=== PATIENT | female | born 1970 | race Caucasian/White ===

== ENCOUNTER 2016-12-21 11:38 | Inpatient (IN) | payer OTHER ==
[2016-12-21 11:52] VITALS: BMI 25.8
--- NOTE | 2016-12-21 15:02 | HP ---
CIWA Score - CIWA Score Nausea/Vomitin-Int. Nausea w/Dry Heave Muscle Tremors: 3 Anxiety: 3 Agitation: 1-Slight > Activity Paroxysmal Sweats: 2 Orientation: 0-Oriented Tacttile Disturbances: 0-None Auditory Disturbances: 3-Moderate Harsh/Frighten Visual Disturbances: 2-Mild Sensitivity Headache: 0-None Present CIWA-Ar Total Score: 18 Admission ROS BHS - HPI Chief Complaint: "I need to stop drinking." Pt. is here to Detox from Alcohol. Allergies/Adverse Reactions: Allergies Allergy/AdvReac Type Severity Reaction Status Date / Time No Known Allergies Allergy Verified 12/21/16 12:32 History of Present Illness: Py. is a 46 YO female here to Detox from Alcohol. This is pt.'s second Detox admission at [facility] (first was many years ago). Pt. has had previous Rehab admissions ( [facility], [facility]). Longest Period of sobriety: approx. 4 years (2009 -2013). Exam Limitations: No Limitations - Ebola screening Have you traveled outside of the country in the last 21 days: No Have you had contact with anyone from an Ebola affected area: No Have you been sick,other than usual withdrawal symptoms: No - Review of Systems Constitutional: Chills, Diaphoresis, Fever, Loss of Appetite, Malaise, Night Sweats, Changes in sleep, Unintentional Wgt. Loss (Lost approx. 10-15 lbs. over the last 1 year.) EENT: reports: Tearing, Nose Congestion, Sinus Pressure, Dental Problems ( Missing Top Teeth, needs to get fitted for Denture. Patient reports that she is able to chew solid food adequately.) Respiratory: reports: SOB with Exertion, Productive cough (Occasional.) Cardiac: reports: No Symptoms Reported GI: reports: Constipated, Nausea, Poor Appetite : reports: No Symptoms Reported Musculoskeletal: reports: Back Pain, Joint Pain, Muscle Pain, Joint Stiffness Integumentary: reports: No Symptoms Reported Neuro: reports: Numbness (Bilateral Hands (History of Carpal Tunnel Syndrome - Bilateral).), Tingling (Bilateral Hands (History of Carpal Tunnel Syndrome - Bilateral).), Tremors Endocrine: reports: No Symptoms Reported Hematology: reports: No Symptoms Reported Psychiatric: reports: Judgement Intact, Mood/Affect Appropiate, Orientated x3, Anxious, Depressed (On meds.) Other Systems: Reviewed and Negative Patient History - Patient Medical History Hx Anemia: No Hx Asthma: Yes (On Meds.) Hx Chronic Obstructive Pulmonary Disease (COPD): Yes (On Meds.) Hx Cancer: No Hx Cardiac Disorders: Yes (IA: approx 3 months ago; Cardiac cath x2: 3 years ago , then 3 months ago.) Hx Congestive Heart Failure: No Hx Hypertension: No Hx Hypercholesterolemia: Yes (On med.; has not taken for a while.) Hx Pacemaker: No HX Cerebrovascular Accident: No Hx Seizures: No Hx Dementia: No Hx Diabetes: No Hx Gastrointestinal Disorders: No Hx Liver Disease: No Hx Genitourinary Disorders: No Hx Sexually Transmitted Disorders: No Hx Renal Disease (ESRD): No Hx Thyroid Disease: No Hx Human Immunodeficiency Virus (HIV): No (Last tested: approx. 1 year ago: NEGATIVE.) Hx Hepatitis C: Yes (Diagnosed; 01/2016.) Hx Depression: Yes (On meds.) Hx Suicide Attempt: Yes (Tried to cut wrist 23 yrs ago. PATIENT DENEIS CURRENT SI / HI.) Hx Bipolar Disorder: No Hx Schizophrenia: No Other Medical History: Arhtritis: L. Back, Hands, Knees; Bulging discs in Back; Carpal Tunnel Syn. - Patient Surgical History Past Surgical History: Yes Hx Neurologic Surgery: Yes (R hand carpal tunnel sx) Hx Cataract Extraction: No Hx Cardiac Surgery: Yes (cardiac cath x2) Hx Lung Surgery: No Hx Breast Surgery: No Hx Breast Biopsy: No Hx Abdominal Surgery: No Hx Appendectomy: No Hx Cholecystectomy: No Hx Genitourinary Surgery: No Hx Section: No Hx Orthopedic Surgery: Yes (R knee arthroscopic sx for Torn Meniscus.) Hx Hysterectomy: No Other Surgical History: bunionectomy, tonsillectomy, tubal ligation Anesthesia Reaction: No - PPD History Previous Implant?: Yes Documented Results: Negative w/o proof Implanted On Prior [facility] Admission?: No PPD to be Administered?: Yes - Reproductive History Patient is a Female of Child Bearing Age (11 -55 yrs old): Yes LMP comment: APPROX. 2 YEARS AGO. Patient : No - Smoking Cessation Smoking history: Current every day smoker Have you smoked in the past 12 months: Yes Aproximately how many cigarettes per day: 20 Cigars Per Day: 0 Hx Chewing Tobacco Use: No Initiated information on smoking cessation: Yes 'Breaking Loose' booklet given: 12/21/16 (GIVEN ON UNIT.) - Substance & Tx. History Hx Alcohol Use: Yes Hx Substance Use: Yes Substance Use Type: Alcohol, Heroin Hx Substance Use Treatment: Yes (Previous Detox and Rehab admissions.) - Substances Abused Alcohol Route: Oral Frequency: Daily Amount used: 2-4 pints vodka Age of first use: 11 Date of Last Use: 12/21/16 Heroin Route: Injection Frequency: 1-3 times last 30 days Amount used: 1 bag Age of first use: 31 Date of Last Use: 12/19/16 Family Disease History - Family Disease History Family History: Denies (Patient is Adopted.) Admission Physical Exam S - Vital Signs Vital Signs: Vital Signs - 24 hr 12/21/16 11:49 Temperature 97.1 F L Pulse Rate 90 Respiratory 20 Rate Blood Pressure 134/76 - Physical General Appearance: Yes: No Apparent Distress, Nourished, Appropriately Dressed , Tremorous, Anxious HEENTM: Yes: Hearing grossly Normal, Normocephalic, Normal Voice, GEMMA, Pharynx Normal Respiratory: Yes: Chest Non-Tender, Lungs Clear, No Respiratory Distress Neck: Yes: No masses,lesions,Nodules, Supple, Trachea in good position Breast: Yes: Breast Exam Deferred Cardiology: Yes: Regular Rhythm, Regular Rate, S1, S2 Abdominal: Yes: Normal Bowel Sounds, Non Tender, Flat, Soft Genitourinary: Yes: Within Normal Limits Back: Yes: Decreased Range of Motion Musculoskeletal: Yes: Gait Steady, Back pain, Joint Stiffness, Muscle Pain Extremities: Yes: Tremors Neurological: Yes: Fully Oriented, Alert, Normal Mood/Affect, Normal Response Integumentary: Yes: Normal Color, Dry, Warm, Track Ross (Noted on bilateral forearms. No signs of infection noted at any of the affected sites.) Lymphatic: Yes: Within Normal Limits - Diagnostic (1) Alcohol dependence with uncomplicated withdrawal Current Visit: Yes Status: Acute (2) Opioid dependence, uncomplicated Current Visit: Yes Status: Chronic (3) Methadone maintenance therapy patient Current Visit: Yes Status: Chronic (4) Opioid dependence on agonist therapy Current Visit: Yes Status: Chronic (5) Asthma Current Visit: Yes Status: Chronic Qualifiers: Asthma severity: mild persistent Asthma complication type: uncomplicated Qualified Code(s): J45.30 - Mild persistent asthma, uncomplicated (6) COPD (chronic obstructive pulmonary disease) Current Visit: Yes Status: Chronic Qualifiers: COPD type: unspecified COPD Qualified Code(s): J44.9 - Chronic obstructive pulmonary disease, unspecified (7) Arthritis involving multiple sites Current Visit: Yes Status: Chronic (8) Carpal tunnel syndrome Current Visit: Yes Status: Chronic Qualifiers: Laterality: bilateral Qualified Code(s): G56.03 - Carpal tunnel syndrome, bilateral upper limbs (9) History of myocardial infarction Current Visit: Yes Status: Chronic (10) History of carpal tunnel surgery Current Visit: Yes Status: Chronic (11) History of depression Current Visit: Yes Status: Chronic (12) Hepatitis C Current Visit: Yes Status: Chronic Qualifiers: Viral hepatitis chronicity: chronic Hepatic coma status: without hepatic coma Qualified Code(s): B18.2 - Chronic viral hepatitis C (13) Bulging of lumbar intervertebral disc Current Visit: Yes Status: Chronic (14) Hypercholesterolemia Current Visit: Yes Status: Chronic (15) Low back pain Current Visit: Yes Status: Active (16) Nicotine dependence Current Visit: Yes Status: Chronic Cleared for Admission [facility] - Detox or Rehab [facility] Level of Care: Medically Managed Detox Regimen/Protocol: Librium [facility] Breath Alcohol Content Breath Alcohol Content: 0.337 Urine Pregancy Test - Result Urine Test Results: Negative- NO Line Present Urine Drug Screen - Results Drug Screen Negative: No Urine Drug Screen Results: OPI-Opiates, BZO-Benzodiazepines, MTD-Methadone
[2016-12-21 15:32] LABS: HIV 1 & 2 AB NEGATIVE; HIV 1 AGp24 NEGATIVE
[2016-12-21] MEDS ORDERED: ACETAMINOPHEN 325 MG TABLET (FP) PO PRN (15:57)
[2016-12-21] MEDS ORDERED: P-EPHED 60MG/TRIPROLIDI 2.5MG TABLET PO PRN (15:57)
[2016-12-21] MEDS ORDERED: MAGNESIUM HYDROX 2400MG/30ML ORAL SUSPENSION 30 ML CUP PO PRN (15:57)
[2016-12-21] MEDS ORDERED: guaiFENesin/D-METHORPHAN HB 10 ML UNIT-DOSE CUPS PO PRN (15:57)
[2016-12-21] MEDS ORDERED: LOPERAMIDE HCL 2 MG CAPSULE PO PRN (15:57)
[2016-12-21] MEDS ORDERED: MENTHOL/PHENOL 1 EACH UD MM PRN (15:57)
[2016-12-21] MEDS ORDERED: MAG HYDROX/AL HYDROX/SIMETH 30 ML UNIT-DOSE CUP PO PRN (15:57)
[2016-12-21] MEDS ORDERED: MAGNESIUM CITRATE 300 ML BOTTLE PO PRN (15:57)
[2016-12-21] MEDS ORDERED: IBUPROFEN 400 MG TABLET (FP) PO PRN (15:57)
[2016-12-21] MEDS ORDERED: NICOTINE POLACRILEX 2 MG GUM BC PRN (15:57)
[2016-12-21] MEDS ORDERED: ALBUTEROL SO4 6.7 GM HFA INHALER IH PRN (16:09)
[2016-12-21] MEDS ORDERED: ALBUTEROL SO4 2.5/IPRATROPIUM 0.5 INH SOL 3 ML VIAL.NEB. NEB PRN (16:10)
[2016-12-21] MEDS: ASPIRIN 81 MG CHEWABLE TABLETS PO SCH (17:14)
[2016-12-21] MEDS ORDERED: chlordiazePOXIDE HCL 25 MG CAPSULE PO ONE (17:15)
[2016-12-21] MEDS: chlordiazePOXIDE HCL 25 MG CAPSULE PO SCH ×2 (17:19→22:14)
[2016-12-21] MEDS: NICOTINE 21 MG/24 HOURS TOPICAL PATCH TD SCH (19:00)
[2016-12-21] MEDS: GABAPENTIN 300 MG CAPSULE (FP) PO SCH (22:15)
[2016-12-21] MEDS: THIAMINE HCL 100 MG TABLET (FP) PO SCH (22:15)
[2016-12-21] MEDS: ATORVASTATIN CA 40 MG TABLET (FP) PO SCH (22:15)
[2016-12-21] MEDS: BUDESONIDE/FORMETEROL FUMARATE 80/4.5 mcg INHALER IH SCH (22:50)
[2016-12-21 23:23] LABS: URINE APPEARANCE SLCLOUDY; URINE BILIRUBIN NEGATIVE (NEGATIVE); URINE BLOOD NEGATIVE (NEGATIVE); URINE COLOR YELLOW; URINE GLUCOSE (UA) NEGATIVE (NEGATIVE); URINE KETONE NEGATIVE (NEGATIVE); URINE LEUK ESTERASE TRACE (NEGATIVE); URINE NITRITE NEGATIVE (NEGATIVE); URINE PROTEIN 1+ (NEGATIVE); URINE UROBILINOGEN 2.0 E.U/dl E.U./dl (0.2-1.0)
[2016-12-21 23:28] LABS: URINE HYALINE CAST 1 /lpf; URINE MUCUS RARE; URINE RBC 4 /hpf (0-3); URINE WBC 4 /hpf (3-5)
[2016-12-22] MEDS: chlordiazePOXIDE HCL 25 MG CAPSULE PO SCH ×4 (05:57→22:11)
[2016-12-22] MEDS: GABAPENTIN 300 MG CAPSULE (FP) PO SCH ×3 (06:37→22:11)
[2016-12-22] MEDS ORDERED: METHADONE HCL 10 MG TABLET PO ONE (08:48)
[2016-12-22] MEDS ORDERED: METHADONE 40 MG, METHADONE 30 MG PO ONE (08:55)
[2016-12-22] MEDS ORDERED: METHADONE HCL 10 MG TABLET ONE (09:09)
[2016-12-22] MEDS ORDERED: METHADONE HCL 40 MG DISPERSABLE TABLET ONE (09:09)
[2016-12-22 10:01] LABS: ALBUMIN 3.9 g/dl (3.4-5.0); ALK PHOS 114 U/L (45-117); ANION GAP 7 (8-16); BILIRUBIN,TOTAL 0.9 mg/dL (0.2-1.0); CO2 31 mmol/L (21-32); CREATININE 0.5 mg/dL (0.55-1.02); GLUCOSE,RANDOM 78 mg/dL (74-106); SGOT/AST 175 U/L (15-37); SGPT/ALT 58 U/L (12-78); TOT PROT 7.8 g/dl (6.4-8.2)
[2016-12-22 10:02] LABS: MCH 35.3 pg (25.7-33.7); MCHC 32.9 g/dl (32.0-36.0); MEAN CELL VOLUME 107.3 fl (80-96); MEAN PLT VOLUME 10.6 fl (7.5-11.1); PLATELET COUNT 96 K/MM3 (134-434); RDW 14.8 % (11.6-15.6); WHITE BLOOD COUNT 5.2 K/mm3 (4.0-10.0)
[2016-12-22] MEDS: ASPIRIN 81 MG CHEWABLE TABLETS PO SCH (10:29)
[2016-12-22] MEDS: CYCLOBENZAPRINE HCL 10 MG TABLET (FP) PO PRN (10:29)
[2016-12-22] MEDS: PRENATAL VITAMINS W/ FOLIC ACID TABLET (FP) PO SCH (10:29)
[2016-12-22] MEDS: BUDESONIDE/FORMETEROL FUMARATE 80/4.5 mcg INHALER IH SCH ×2 (10:30→22:11)
[2016-12-22] MEDS: NICOTINE 21 MG/24 HOURS TOPICAL PATCH TD SCH (10:30)
--- NOTE | 2016-12-22 10:34 | PN ---
S CIWA - CIWA Score Nausea/Vomitin Muscle Tremors: 3 Anxiety: 3 Agitation: 3 Paroxysmal Sweats: 1-Minimal Palms Moist Orientation: 0-Oriented Tacttile Disturbances: 1-Very Mild Itch/Numbness Auditory Disturbances: 1-Very Mild Visual Disturbances: 1-Very Mild Sensitivity Headache: 2-Mild CIWA-Ar Total Score: 18 S Progress Note (SOAP) Subjective: ALERT,IRRITABLE,ANXIOUS,INTERRUPTED SLEEP,TREMOR,PAIN IN THE BODY AND BACK Objective: 12/22/16 10:29 Vital Signs Temperature 98.6 F 12/22/16 06:00 Pulse Rate 71 12/22/16 07:30 Respiratory Rate 18 12/22/16 07:30 Blood Pressure 148/89 12/22/16 07:30 O2 Sat by Pulse Oximetry (%) EKG NSR,INVERTED T IN 3,V4 TO V6 NO CHEST PAIN,NO SOB,NO DIZZINESS Laboratory Last Values WBC 5.2 K/mm3 (4.0-10.0) 12/22/16 06:00 RBC 3.89 M/mm3 (3.60-5.2) 12/22/16 06:00 Hgb 13.7 GM/dL (10.7-15.3) 12/22/16 06:00 Hct 41.8 % (32.4-45.2) 12/22/16 06:00 MCV 107.3 fl (80-96) H 12/22/16 06:00 MCHC 32.9 g/dl (32.0-36.0) 12/22/16 06:00 RDW 14.8 % (11.6-15.6) 12/22/16 06:00 Plt Count 96 K/MM3 (134-434) L 12/22/16 06:00 MPV 10.6 fl (7.5-11.1) 12/22/16 06:00 Sodium 141 mmol/L (136-145) 12/22/16 06:00 Potassium 4.0 mmol/L (3.5-5.1) 12/22/16 06:00 Chloride 103 mmol/L (98-107) 12/22/16 06:00 Carbon Dioxide 31 mmol/L (21-32) 12/22/16 06:00 Anion Gap 7 (8-16) L 12/22/16 06:00 BUN 4 mg/dL (7-18) L D 12/22/16 06:00 Creatinine 0.5 mg/dL (0.55-1.02) L 12/22/16 06:00 Creat Clearance w eGFR > 60 (>60) 12/22/16 06:00 Random Glucose 78 mg/dL (74-106) 12/22/16 06:00 Calcium 9.0 mg/dL (8.5-10.1) 12/22/16 06:00 Total Bilirubin 0.9 mg/dL (0.2-1.0) D 12/22/16 06:00 AST 175 U/L (15-37) H D 12/22/16 06:00 ALT 58 U/L (12-78) D 12/22/16 06:00 Alkaline Phosphatase 114 U/L (45-117) D 12/22/16 06:00 Total Protein 7.8 g/dl (6.4-8.2) 12/22/16 06:00 Albumin 3.9 g/dl (3.4-5.0) 12/22/16 06:00 Urine Color Yellow 12/21/16 21:53 Urine Appearance Slcloudy 12/21/16 21:53 Urine pH 6.0 (5.0-8.0) 12/21/16 21:53 Urine Protein 1+ (NEGATIVE) H 12/21/16 21:53 Urine Glucose (UA) Negative (NEGATIVE) 12/21/16 21:53 Urine Ketones Negative (NEGATIVE) 12/21/16 21:53 Urine Blood Negative (NEGATIVE) 12/21/16 21:53 Urine Nitrite Negative (NEGATIVE) 12/21/16 21:53 Urine Bilirubin Negative (NEGATIVE) 12/21/16 21:53 Urine Urobilinogen 2.0 e.u/dl E.U./dl (0.2-1.0) H 12/21/16 21:53 Ur Leukocyte Esterase Trace (NEGATIVE) H 12/21/16 21:53 Urine RBC 4 /hpf (0-3) 12/21/16 21:53 Urine WBC 4 /hpf (3-5) 12/21/16 21:53 Ur Epithelial Cells Many /hpf (FEW) 12/21/16 21:53 Amorphous Urates Moderate /hpf (NONE SEEN) 12/21/16 21:53 Hyaline Casts 1 /lpf 12/21/16 21:53 Urine Mucus Rare 12/21/16 21:53 HIV 1&2 Antibody Screen Negative 12/21/16 12:00 HIV P24 Antigen Negative 12/21/16 12:00 Assessment: 12/22/16 10:34 WITHDRAWAL SYMPTOM Plan: CONTINUE DETOX,AST 175,ALT 58,D/C TYLENOL
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
[2016-12-22] MEDS: chlordiazePOXIDE HCL 25 MG CAPSULE PO PRN (13:56)
[2016-12-22 14:22] LABS: HYPOCHROMIA 2+; TARGET CELLS 1+
[2016-12-22] MEDS: ATORVASTATIN CA 40 MG TABLET (FP) PO SCH (22:11)
[2016-12-22] MEDS: diphenhydrAMINE HCL 50 MG CAPSULE PO PRN (22:11)
[2016-12-22] MEDS: THIAMINE HCL 100 MG TABLET (FP) PO SCH (22:11)
[2016-12-23] MEDS ORDERED: METHADONE HCL 10 MG TABLET ONE (05:11)
[2016-12-23] MEDS ORDERED: METHADONE HCL 40 MG DISPERSABLE TABLET ONE (05:11)
[2016-12-23] MEDS: METHADONE 40 MG, METHADONE 30 MG PO SCH (05:32)
[2016-12-23] MEDS: chlordiazePOXIDE HCL 25 MG CAPSULE PO SCH ×2 (05:32→10:08)
[2016-12-23] MEDS: GABAPENTIN 300 MG CAPSULE (FP) PO SCH ×3 (05:32→22:10)
[2016-12-23] MEDS ORDERED: METHADONE HCL 40 MG DISPERSABLE TABLET PO SCH (06:00)
[2016-12-23] MEDS: BUDESONIDE/FORMETEROL FUMARATE 80/4.5 mcg INHALER IH SCH ×2 (10:08→22:10)
[2016-12-23] MEDS: PRENATAL VITAMINS W/ FOLIC ACID TABLET (FP) PO SCH (10:08)
[2016-12-23] MEDS: SERTRALINE HCL 50 MG TABLET (FP) PO SCH (10:08)
[2016-12-23] MEDS: ASPIRIN 81 MG CHEWABLE TABLETS PO SCH (10:08)
[2016-12-23] MEDS: NICOTINE 21 MG/24 HOURS TOPICAL PATCH TD SCH (10:09)
--- NOTE | 2016-12-23 10:24 | PN ---
S CIWA - CIWA Score Nausea/Vomitin Muscle Tremors: 3 Anxiety: 3 Agitation: 2 Paroxysmal Sweats: 1-Minimal Palms Moist Orientation: 0-Oriented Tacttile Disturbances: 1-Very Mild Itch/Numbness Auditory Disturbances: 1-Very Mild Visual Disturbances: 1-Very Mild Sensitivity Headache: 2-Mild CIWA-Ar Total Score: 17 BHS Progress Note (SOAP) Subjective: ALERT,IRRITABLE,ANXIOUS,INTERRUPTED SLEEP,TREMOR Objective: 12/23/16 10:23 Vital Signs Temperature 98.2 F 12/23/16 10:11 Pulse Rate 124 H 12/23/16 10:11 Respiratory Rate 18 12/23/16 10:11 Blood Pressure 118/81 12/23/16 10:11 O2 Sat by Pulse Oximetry (%) Assessment: 12/23/16 10:23 WITHDRAWAL SYMPTOM Plan: CONTINUE DETOX
[2016-12-23] MEDS: chlordiazePOXIDE HCL 25 MG CAPSULE PO PRN (14:56)
[2016-12-23] MEDS: chlordiazePOXIDE 5 MG CAPSULE PO SCH ×2 (17:27→22:10)
[2016-12-23] MEDS: ATORVASTATIN CA 40 MG TABLET (FP) PO SCH (22:10)
[2016-12-23] MEDS: CYCLOBENZAPRINE HCL 10 MG TABLET (FP) PO PRN (22:10)
[2016-12-23] MEDS: THIAMINE HCL 100 MG TABLET (FP) PO SCH (22:10)
[2016-12-23] MEDS: diphenhydrAMINE HCL 50 MG CAPSULE PO PRN (22:10)
[2016-12-24] MEDS: chlordiazePOXIDE HCL 25 MG CAPSULE PO PRN (01:21)
[2016-12-24] MEDS: diphenhydrAMINE HCL 50 MG CAPSULE PO PRN (01:21)
[2016-12-24] MEDS ORDERED: METHADONE HCL 40 MG DISPERSABLE TABLET ONE (04:43)
[2016-12-24] MEDS ORDERED: METHADONE HCL 10 MG TABLET ONE (04:44)
[2016-12-24] MEDS: chlordiazePOXIDE 5 MG CAPSULE PO SCH ×2 (05:26→10:15)
[2016-12-24] MEDS: METHADONE 40 MG, METHADONE 30 MG PO SCH (05:27)
[2016-12-24] MEDS: GABAPENTIN 300 MG CAPSULE (FP) PO SCH ×3 (05:32→22:41)
--- NOTE | 2016-12-24 09:19 | PN ---
S Progress Note (SOAP) Subjective: ALERT,INTERRUPTED SLEEP Objective: 12/24/16 09:16 Vital Signs Temperature 98.2 F 12/24/16 05:54 Pulse Rate 132 H 12/24/16 05:54 Respiratory Rate 18 12/24/16 05:54 Blood Pressure 117/80 12/24/16 05:54 O2 Sat by Pulse Oximetry (%) Assessment: 12/24/16 09:16 WITHDRAWAL SYMPTOM Plan: CONTINUE DETOX,DISCHARGE IN AM AT 07.00AM
[2016-12-24] MEDS: PRENATAL VITAMINS W/ FOLIC ACID TABLET (FP) PO SCH (10:15)
[2016-12-24] MEDS: CYCLOBENZAPRINE HCL 10 MG TABLET (FP) PO PRN (10:15)
[2016-12-24] MEDS: SERTRALINE HCL 50 MG TABLET (FP) PO SCH (10:15)
[2016-12-24] MEDS: NICOTINE 21 MG/24 HOURS TOPICAL PATCH TD SCH (10:16)
[2016-12-24] MEDS: BUDESONIDE/FORMETEROL FUMARATE 80/4.5 mcg INHALER IH SCH ×2 (10:17→22:35)
[2016-12-24] MEDS: ASPIRIN 81 MG CHEWABLE TABLETS PO SCH (10:58)
--- NOTE | 2016-12-24 13:30 | PN ---
BHS Progress Note Note: CONFUSED AT TIME ,BLOOD FOR AMMONIA LEVEL ORDERED,CLOSE MONITORINGR
[2016-12-24] MEDS: hydrOXYzine PAMOATE 50 MG CAPSULE (FP) PO PRN (13:50)
[2016-12-24] MEDS: chlordiazePOXIDE HCL 10 MG CAPSULE PO SCH ×2 (17:17→22:41)
[2016-12-24] MEDS: LACTULOSE 20 GM/30 ML UDC (FOR ORAL USE ONLY) PO SCH ×2 (20:20→22:40)
--- NOTE | 2016-12-24 21:02 | PN ---
BHS Progress Note Note: Ammonium levels elevated; Lactulose 20mg PO BID ordered. Will continue to monitor.
--- NOTE | 2016-12-24 22:21 | EKG ---
Test Reason : Blood Pressure : / mmHG Vent. Rate : 069 BPM Atrial Rate : 069 BPM P-R Int : 158 ms QRS Dur : 098 ms QT Int : 468 ms P-R-T Axes : 049 024 242 degrees QTc Int : 501 ms NORMAL SINUS RHYTHM T WAVE T WAVE ABNORMALITY, CONSIDER ANTEROLATERAL ISCHEMIA PROLONGED QT ABNORMAL ECG NO PREVIOUS ECGS AVAILABLE Confirmed by JIMMY CHAMPION MD ([id number]) on 12/24/2016 10:21:17 PM Referred By: Confirmed By:JIMMY CHAMPION MD
[2016-12-24] MEDS: THIAMINE HCL 100 MG TABLET (FP) PO SCH (22:34)
[2016-12-24] MEDS: ATORVASTATIN CA 40 MG TABLET (FP) PO SCH (22:34)
--- NOTE | 2016-12-24 23:35 | PN ---
[facility] Progress Note Note: Per RN Nette Herndon, pt. has periods of confusion. Earlier, she is looking for her dog and friend under the bed. When CAMBERING MACHINE OPERATOR came to the floor, pt. found sleeping in bed. 1:1 supervision ordered until further notice. Ammonia levels to be rechecked in the morning.
[2016-12-25 06:33] VITALS: BP 111/74; PULSE 112; TEMP 98.2
[2016-12-25] MEDS: GABAPENTIN 300 MG CAPSULE (FP) PO SCH (07:37)
--- NOTE | 2016-12-25 07:53 | PN ---
[facility] Progress Note (SOAP) Subjective: ALERT,ORIENTED X3,NO COMPLAINT,HAS APPOINTMENT TO SEE HER PSYCHIATRIST AT 9.30 AM TODAY Objective: 12/25/16 07:52 Vital Signs Temperature 98.2 F 12/25/16 05:00 Pulse Rate 112 H 12/25/16 05:00 Respiratory Rate 18 12/25/16 05:00 Blood Pressure 111/74 12/25/16 05:00 O2 Sat by Pulse Oximetry (%) 12/25/16 07:54 Abnormal Lab Results 12/24/16 18:36 Ammonia 88.36 H Assessment: 12/25/16 07:54 DETOX COMPLETED,NO WITHDRAWAL SYMPTOM Plan: STABLE FOR DISCHARGE TODAY,D/D ONE ON ONE,ON LACTULOSE 20 GRAMS PO BID, ADVISE TO SEE HER PSYCHIATRIST TODAY APPOINTMENT,FOLLOW UP WITH HER METHADONE PROGRAM TOMORROW ON 12/26/16 AND HER PMD FOR FOLLOW UP PATENT UNDER STAND ALL RECOMMENDATIONS
[2016-12-25] MEDS ORDERED: METHADONE HCL 40 MG DISPERSABLE TABLET ONE (07:54)
[2016-12-25] MEDS ORDERED: METHADONE HCL 10 MG TABLET ONE (07:55)
[2016-12-25] MEDS: METHADONE 40 MG, METHADONE 30 MG PO SCH (07:57)
[2016-12-25] MEDS: chlordiazePOXIDE HCL 10 MG CAPSULE PO SCH (07:57)
--- NOTE | 2016-12-25 08:26 | DS ---
[facility] Detox Discharge Summary Admission Date: 12/21/16 Discharge Date: 12/25/16 - History Present History: Alcohol Dependence, Opioid Dependence, MMTP Additional Comments: follow up with psychiatrist today at 9.30 am,follow up with methadone clinic on 12/26/16,to see pmd for follow up on elevation of ammonia level and medical problem,explain to patient for the need of taking lactulose 20 grams 30 mls po bid for 10 days Pertinent Past History: asthma copd arthritis hepatitis c history of mi low back pain high ammonia level - Physical Exam Results Vital Signs: Vital Signs Temperature 98.2 F 12/25/16 05:00 Pulse Rate 112 H 12/25/16 05:00 Respiratory Rate 18 12/25/16 05:00 Blood Pressure 111/74 12/25/16 05:00 O2 Sat by Pulse Oximetry (%) Pertinent Admission Physical Exam Findings: withdrawal symptom - Treatment Hospital Course: Detox Protocol Followed, Detoxed Safely, Responded well, Discharged Condition Good Patient has Accepted a Rehab Referral to: declined - Medication Discharge Medications: Ambulatory Orders Alprazolam [Xanax -] 2 mg PO BID PRN 04/02/14 Aspirin [ASA -] 81 mg PO ONCE 04/02/14 Atorvastatin Ca [Lipitor -] 40 mg PO HS 04/02/14 Gabapentin [Neurontin] 400 mg PO TID PRN 04/02/14 Ipratropium/Albuterol Sulfate [Combivent Respimat Inhal [place]] 4 gm IH DAILY PRN 04/02/14 Isosorbide Mononitrate [Imdur] 60 mg PO ACDIN 04/02/14 Methocarbamol [Robaxin -] 750 mg PO BID PRN 04/02/14 Mirtazapine [Remeron [DO NOT STOCK]] 45 mg PO DAILY PRN 04/02/14 Salmeterol/Fluticasone [Advair 250Mcg/50Mcg -] 1 inh IH BID 04/02/14 Vitamin B Complex [B Complex] 1 each PO ACDIN 04/02/14 Bupropion HCl [Wellbutrin Xl] 300 mg PO DAILY 12/21/16 Bupropion HCl [Wellbutrin Xl] 300 mg PO DAILY #30 tab 12/22/16 Sertraline HCl [Zoloft -] 100 mg PO DAILY #30 tablet 12/22/16 Lactulose (Oral Use) [Cephulac -] 20 gm PO BID #20 grams 12/25/16 - Diagnosis (1) Increased ammonia level Current Visit: Yes Status: Acute - AMA Did Patient Leave Against Medical Advice: No
[2016-12-25] MEDS: BUDESONIDE/FORMETEROL FUMARATE 80/4.5 mcg INHALER IH SCH (09:13)
[2016-12-25] MEDS: hydrOXYzine PAMOATE 50 MG CAPSULE (FP) PO PRN (09:13)
[2016-12-25] MEDS: ASPIRIN 81 MG CHEWABLE TABLETS PO SCH (09:14)
[2016-12-25] MEDS: SERTRALINE HCL 50 MG TABLET (FP) PO SCH (09:14)
[2016-12-25] MEDS: LACTULOSE 20 GM/30 ML UDC (FOR ORAL USE ONLY) PO SCH (09:15)
[2016-12-25] MEDS: PRENATAL VITAMINS W/ FOLIC ACID TABLET (FP) PO SCH (09:15)
== END 2016-12-25 10:20 | disposition home or self-care (01) | DRG 773 ==
LOC: YASAS 11:38 → Y6N 13:08
PROVIDERS: ADMIT Internal Medicine; ATTEND Internal Medicine
PROC: HZ2ZZZZ Detoxification Services for Substance Abuse Treatment (ICD-10-PCS; principal; 2016-12-21)
DX: F10.230 Alcohol dependence with withdrawal, uncomplicated (principal); F11.20 Opioid dependence, uncomplicated; F17.210 Nicotine dependence, cigarettes, uncomplicated; F33.1 Major depressive disorder, recurrent, moderate; I25.2 Old myocardial infarction; M19.90 Unspecified osteoarthritis, unspecified site; J45.30 Mild persistent asthma, uncomplicated; J44.9 Chronic obstructive pulmonary disease, unspecified; M50.20 Other cervical disc displacement, unspecified cervical region; E72.20 Disorder of urea cycle metabolism, unspecified; B18.2 Chronic viral hepatitis C; G56.03 Carpal tunnel syndrome, bilateral upper limbs; E78.00 Pure hypercholesterolemia, unspecified; Z98.61 Coronary angioplasty status; Z91.5 Personal history of self-harm
CPT/HCPCS: 36415; 80053; 81003; 81015; 82140; 85027; 86593; 87389; 93005; 93010

== ENCOUNTER 2018-08-09 11:52 | Inpatient (IN) | payer OTHER ==
[2018-08-09 12:29] VITALS: BMI 22.8
--- NOTE | 2018-08-09 13:59 | HP ---
CIWA Score Nausea/Vomitin Muscle Tremors: 1-None Visible, but [place] Anxiety: 4-Mod. Anxious/Guarded Agitation: 0-Normal Activity Paroxysmal Sweats: 3 Orientation: 0-Oriented Tacttile Disturbances: 0-None Auditory Disturbances: 0-None Visual Disturbances: 0-None Headache: 5-Severe CIWA-Ar Total Score: 16 - Admission Criteria [facility] Guidelines: Admission for Medically Managed Detox: Requires at least one of the followin. CIWA greater than 12 2. Seizures within the past 24 hours 3. Delirium tremens within the past 24 hours 4. Hallucinations within the past 24 hours 5. Acute intervention needed for co occurring medical disorder 6. Acute intervention needed for co occurring psychiatric disorder 7. Severe withdrawal that cannot be handled at a lower level of care (continued vomiting, continued diarrhea, abnormal vital signs) requiring intravenous medication and/or fluids 8. Patient presents the following: CIWA greater than 12 Admission Criteria Met: Admission criteria met Admission ROS [facility] Allergies/Adverse Reactions: Allergies Allergy/AdvReac Type Severity Reaction Status Date / Time No Known Allergies Allergy Verified 08/09/18 14:36 History of Present Illness: patient here requesting detox from etoh use , reports 1 liter /day , first age of use teens, initially beer then liquor , longest sobriety 1 year w/ AA , long-term residential [facility] x 6 mo . Latest use today, current symptoms as above , reports w/d seizures latest this Sunday [facility] , reports she starts drinking 24/7 , awakening during the night to drink, denies blackouts ,+ tremors . heroin use : since age 27, IVDU since age 35 in [facility], needles from pharmacy , sharing w/ BF , denies abscess, denies OD, latest use 4 mo ago , currently in [facility] x 3 years , current dose 70 mg no THB . past use : cocaine , cannabis tobacco : 1/2 ppd PMHX : hypoglycemia , [place] 18 mo ago , COPD , R knee TKR , DJD , chronic back pain , cts R , left bunionectomy , BTL cardiac stenting 4 years ago at [facility] . meds - see list Exam Limitations: Clinical Condition, Intoxication - Ebola screening Have you traveled outside of the country in the last 21 days: No Have you had contact with anyone from an Ebola affected area: No Have you been sick,other than usual withdrawal symptoms: No Do you have a fever: No - Review of Systems Constitutional: See HPI EENT: reports: Other (glasses , upper dentures) Respiratory: reports: No Symptoms reported Cardiac: reports: No Symptoms Reported GI: reports: See HPI : reports: See HPI (reports sometimes she has difficulty urinating) Musculoskeletal: reports: See HPI, Back Pain, Joint Pain Integumentary: reports: No Symptoms Reported Neuro: reports: Headache Endocrine: reports: See HPI Psychiatric: reports: Orientated x3, Agitated, Anxious Patient History - Patient Medical History Hx Anemia: No Hx Asthma: Yes (On Meds.) Hx Chronic Obstructive Pulmonary Disease (COPD): Yes (On Meds.) Hx Cancer: No Hx Cardiac Disorders: Yes (WA: approx 3 months ago; Cardiac cath x2: 3 years ago , then 3 months ago.) Hx Congestive Heart Failure: No Hx Hypertension: No Hx Hypercholesterolemia: Yes (On med.; has not taken for a while.) Hx Pacemaker: No HX Cerebrovascular Accident: No Hx Seizures: No Hx Dementia: No Hx Diabetes: No Hx Gastrointestinal Disorders: No Hx Liver Disease: No Hx Genitourinary Disorders: No Hx Sexually Transmitted Disorders: No Hx Renal Disease (ESRD): No Hx Thyroid Disease: No Hx Human Immunodeficiency Virus (HIV): No (Last tested: approx. 1 year ago: NEGATIVE.) Hx Hepatitis C: Yes (Diagnosed; 01/2016.) Hx Depression: Yes (On meds.) Hx Suicide Attempt: Yes (Tried to cut wrist 23 yrs ago. PATIENT DENEIS CURRENT SI / HI.) Hx Bipolar Disorder: No Hx Schizophrenia: No - Patient Surgical History Past Surgical History: Yes Hx Neurologic Surgery: Yes (R hand carpal tunnel sx) Hx Cataract Extraction: No Hx Cardiac Surgery: Yes (cardiac cath x2) Hx Lung Surgery: No Hx Breast Surgery: No Hx Breast Biopsy: No Hx Abdominal Surgery: No Hx Appendectomy: No Hx Cholecystectomy: No Hx Genitourinary Surgery: No Hx Section: No Hx Orthopedic Surgery: Yes (R knee arthroscopic sx for Torn Meniscus.) Hx Hysterectomy: No Other Surgical History: bunionectomy, tonsillectomy, tubal ligation Anesthesia Reaction: No - PPD History Date: 12/23/16 - Reproductive History Last Menstrual Period: 04/20/12 - Smoking Cessation Smoking history: Current every day smoker Have you smoked in the past 12 months: Yes Aproximately how many cigarettes per day: 20 Cigars Per Day: 0 Hx Chewing Tobacco Use: No Initiated information on smoking cessation: No - Substances Abused Alcohol-vodka Route: Oral Frequency: Daily Amount used: 1 liter Age of first use: 11 Date of Last Use: 08/09/18 Admission Physical Exam BHS - Vital Signs Vital Signs: Vital Signs - 24 hr 08/09/18 12:19 Temperature 97.4 F L Pulse Rate 84 Respiratory 18 Rate Blood Pressure 115/74 BHS Breath Alcohol Content Breath Alcohol Content: 0.245 Urine Pregancy Test - Result Urine Test Results: Negative- NO Line Present Urine Drug Screen - Results Drug Screen Negative: No Urine Drug Screen Results: [facility] Inpatient Rehab Admission - Rehab Decision to Admit Inpatient rehab admission?: No
[2018-08-09] MEDS ORDERED: NICOTINE POLACRILEX 2 MG GUM BC PRN (14:10)
[2018-08-09] MEDS ORDERED: MAGNESIUM HYDROX 2400MG/30ML ORAL SUSPENSION 30 ML CUP PO PRN (14:10)
[2018-08-09] MEDS ORDERED: MAGNESIUM CITRATE 300 ML BOTTLE PO PRN (14:10)
[2018-08-09] MEDS ORDERED: IBUPROFEN 400 MG TABLET (FP) PO PRN (14:10)
[2018-08-09] MEDS ORDERED: MAG HYDROX/AL HYDROX/SIMETH 30 ML UNIT-DOSE CUP PO PRN (14:10)
[2018-08-09] MEDS ORDERED: ACETAMINOPHEN 325 MG TABLET (FP) PO PRN (14:10)
[2018-08-09] MEDS ORDERED: MENTHOL/PHENOL 1 EACH UD MM PRN (14:10)
--- NOTE | 2018-08-09 15:49 | HP ---
CIWA Score Nausea/Vomitin Muscle Tremors: 1-None Visible, but [place] Anxiety: 4-Mod. Anxious/Guarded Agitation: 0-Normal Activity Paroxysmal Sweats: 3 Orientation: 0-Oriented Tacttile Disturbances: 0-None Auditory Disturbances: 0-None Visual Disturbances: 0-None Headache: 5-Severe CIWA-Ar Total Score: 16 - Admission Criteria [facility]ASAS Guidelines: Admission for Medically Managed Detox: Requires at least one of the followin. CIWA greater than 12 2. Seizures within the past 24 hours 3. Delirium tremens within the past 24 hours 4. Hallucinations within the past 24 hours 5. Acute intervention needed for co occurring medical disorder 6. Acute intervention needed for co occurring psychiatric disorder 7. Severe withdrawal that cannot be handled at a lower level of care (continued vomiting, continued diarrhea, abnormal vital signs) requiring intravenous medication and/or fluids 8. Admission ROS [facility] Allergies/Adverse Reactions: Allergies Allergy/AdvReac Type Severity Reaction Status Date / Time No Known Allergies Allergy Verified 08/09/18 14:36 - Ebola screening Have you traveled outside of the country in the last 21 days: No Have you had contact with anyone from an Ebola affected area: No Have you been sick,other than usual withdrawal symptoms: No Do you have a fever: No Patient History - Patient Medical History Hx Anemia: No Hx Asthma: Yes (On Meds.) Hx Chronic Obstructive Pulmonary Disease (COPD): Yes (On Meds.) Hx Cancer: No Hx Cardiac Disorders: Yes (PR: approx 3 months ago; Cardiac cath x2: 3 years ago , then 3 months ago.) Hx Congestive Heart Failure: No Hx Hypertension: No Hx Hypercholesterolemia: Yes (On med.; has not taken for a while.) Hx Pacemaker: No HX Cerebrovascular Accident: No Hx Seizures: No Hx Dementia: No Hx Diabetes: No Hx Gastrointestinal Disorders: No Hx Liver Disease: No Hx Genitourinary Disorders: No Hx Sexually Transmitted Disorders: No Hx Renal Disease (ESRD): No Hx Thyroid Disease: No Hx Human Immunodeficiency Virus (HIV): No (Last tested: approx. 1 year ago: NEGATIVE.) Hx Hepatitis C: Yes (Diagnosed; 01/2016.) Hx Depression: Yes (On meds.) Hx Suicide Attempt: Yes (Tried to cut wrist 23 yrs ago. PATIENT DENEIS CURRENT SI / HI.) Hx Bipolar Disorder: No Hx Schizophrenia: No - Patient Surgical History Past Surgical History: Yes Hx Neurologic Surgery: Yes (R hand carpal tunnel sx) Hx Cataract Extraction: No Hx Cardiac Surgery: Yes (cardiac cath x2) Hx Lung Surgery: No Hx Breast Surgery: No Hx Breast Biopsy: No Hx Abdominal Surgery: No Hx Appendectomy: No Hx Cholecystectomy: No Hx Genitourinary Surgery: No Hx Section: No Hx Orthopedic Surgery: Yes (R knee arthroscopic sx for Torn Meniscus.) Hx Hysterectomy: No Other Surgical History: bunionectomy, tonsillectomy, tubal ligation Anesthesia Reaction: No - PPD History Previous Implant?: Yes Documented Results: Negative w/proof Implanted On Prior R Admission?: Yes Date: 12/23/16 Results: 0 mm - Reproductive History Last Menstrual Period: 04/20/12 Patient : No - Smoking Cessation Smoking history: Current every day smoker Have you smoked in the past 12 months: Yes Aproximately how many cigarettes per day: 20 Cigars Per Day: 0 Hx Chewing Tobacco Use: No Initiated information on smoking cessation: No - Substances Abused Alcohol-vodka Route: Oral Frequency: Daily Amount used: 1 liter Age of first use: 11 Date of Last Use: 08/09/18 Admission Physical Exam B[facility] - Vital Signs Vital Signs: Vital Signs - 24 hr 08/09/18 12:19 Temperature 97.4 F L Pulse Rate 84 Respiratory 18 Rate Blood Pressure 115/74 - Physical General Appearance: Yes: Alcohol on Breath, Intoxicated, Anxious HEENTM: Yes: EOMI, Hearing grossly Normal, Normocephalic, Normal Voice, Other ( missing teeth) Respiratory: Yes: Chest Non-Tender, Lungs Clear, Normal Breath Sounds Neck: Yes: No masses,lesions,Nodules, Trachea in good position Cardiology: Yes: Regular Rhythm, Regular Rate, S1, S2 Abdominal: Yes: Normal Bowel Sounds, Non Tender, Soft Back: Yes: Normal Inspection Musculoskeletal: Yes: Other (unsteady gait , R knee pain) Extremities: Yes: Normal Capillary Refill, Non-Tender, Tremors. 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
[2018-08-09] MEDS ORDERED: ALBUTEROL SO4 0.083% IH SOL 2.5 MG/3 ML VIAL.NEB. NEB PRN (15:50)
[2018-08-09] MEDS: ASPIRIN 81 MG CHEWABLE TABLETS PO SCH (15:55)
[2018-08-09] MEDS: chlordiazePOXIDE HCL 25 MG CAPSULE PO SCH ×2 (17:15→22:14)
[2018-08-09] MEDS: PHENYTOIN NA EXTENDED 100 MG CAPSULE (FP) PO SCH ×2 (17:15→22:15)
[2018-08-09] MEDS: chlordiazePOXIDE HCL 25 MG CAPSULE PO PRN (20:27)
[2018-08-09] MEDS ORDERED: MELATONIN 5 MG TABLETS PO PRN (22:00)
[2018-08-09] MEDS ORDERED: ATORVASTATIN CA 40 MG TABLET (FP) PO SCH (22:00)
[2018-08-09] MEDS: METOPROLOL TARTRATE 25 MG TABLET (FP) PO SCH (22:14)
[2018-08-09] MEDS: BUDESONIDE/FORMETEROL FUMARATE 80/4.5 mcg INHALER IH SCH (22:15)
[2018-08-09] MEDS: ATORVASTATIN CA 20 MG TABLET (FP) PO SCH (22:15)
[2018-08-09] MEDS: THIAMINE HCL 100 MG TABLET (FP) PO SCH (23:31)
[2018-08-10] MEDS: chlordiazePOXIDE HCL 25 MG CAPSULE PO PRN ×2 (01:49→09:14)
[2018-08-10] MEDS: chlordiazePOXIDE HCL 25 MG CAPSULE PO SCH ×4 (05:35→23:06)
[2018-08-10] MEDS: PHENYTOIN NA EXTENDED 100 MG CAPSULE (FP) PO SCH ×3 (05:36→23:07)
[2018-08-10] MEDS ORDERED: METHADONE HCL 10 MG TABLET PO SCH (09:00)
--- NOTE | 2018-08-10 09:30 | PN ---
[facility] CIWA - CIWA Score Nausea/Vomitin Muscle Tremors: 4-Moderate,w/Arms Extend Anxiety: 2 Agitation: 2 Paroxysmal Sweats: 2 Orientation: 0-Oriented Tacttile Disturbances: 0-None Auditory Disturbances: 0-None Visual Disturbances: 0-None Headache: 2-Mild CIWA-Ar Total Score: 14 BHS Progress Note (SOAP) Subjective: pt states she is feeling sick with drawal Sx- came in yesterday. O Vital Signs - 24 hr 08/09/18 08/09/18 08/09/18 12:19 15:50 15:58 Temperature 97.4 F L 98.8 F Pulse Rate 84 84 84 Respiratory 18 18 18 Rate Blood Pressure 115/74 115/71 08/09/18 08/09/18 08/09/18 16:30 17:00 17:30 Temperature Pulse Rate 80 88 89 Respiratory 18 18 18 Rate Blood Pressure 08/09/18 08/09/18 08/09/18 18:00 18:30 19:00 Temperature 98.9 F Pulse Rate 92 H 90 93 H Respiratory 18 18 18 Rate Blood Pressure 115/77 08/09/18 08/09/18 08/09/18 19:30 20:00 20:30 Temperature Pulse Rate 91 H 96 H 92 H Respiratory 18 18 18 Rate Blood Pressure 08/09/18 08/10/18 08/10/18 21:39 00:30 01:00 Temperature 98.4 F Pulse Rate 87 79 83 Respiratory 18 17 18 Rate Blood Pressure 142/99 08/10/18 08/10/18 08/10/18 01:30 02:00 02:30 Temperature Pulse Rate 87 79 73 Respiratory 18 Rate Blood Pressure 08/10/18 08/10/18 08/10/18 03:00 03:30 04:00 Temperature Pulse Rate 70 77 78 Respiratory 18 18 18 Rate Blood Pressure 08/10/18 08/10/18 08/10/18 04:30 05:00 05:30 Temperature Pulse Rate 75 73 74 Respiratory 18 18 16 Rate Blood Pressure 08/10/18 08/10/18 08/10/18 06:00 06:30 07:00 Temperature 97.7 F Pulse Rate 75 75 89 Respiratory 20 Rate Blood Pressure 136/95 08/10/18 08/10/18 07:30 08:00 Temperature Pulse Rate 91 H 91 H Respiratory Rate Blood Pressure Laboratory Tests 08/09/18 08/10/18 16:23 06:21 POC Glucometer 118 105 labs pending a/p: continue alcohol detox protocol- pt with Sx- prn meds added also valium prn available
[2018-08-10] MEDS ORDERED: FOLIC ACID 1 MG TABLET (FP) PO SCH (10:00)
[2018-08-10] MEDS: PRENATAL VITAMINS W/ FOLIC ACID TABLET (FP) PO SCH (10:18)
[2018-08-10] MEDS: BUDESONIDE/FORMETEROL FUMARATE 80/4.5 mcg INHALER IH SCH ×2 (10:18→23:06)
[2018-08-10] MEDS: METOPROLOL TARTRATE 25 MG TABLET (FP) PO SCH ×2 (10:18→23:06)
[2018-08-10] MEDS ORDERED: METHADONE HCL 40 MG DISPERSABLE TABLET ONE (10:19)
[2018-08-10] MEDS: METHADONE 40 MG, METHADONE 30 MG PO SCH (10:20)
[2018-08-10] MEDS ORDERED: METHADONE HCL 10 MG TABLET ONE (10:20)
[2018-08-10] MEDS: ASCORBIC ACID 500 MG TABLET (FP) PO SCH (10:30)
[2018-08-10] MEDS: ASPIRIN 81 MG CHEWABLE TABLETS PO SCH (10:47)
[2018-08-10 11:31] LABS: ALBUMIN 3.6 g/dl (3.4-5.0); ALK PHOS 218 U/L (45-117); ANION GAP 6 MMOL/L (8-16); BILIRUBIN,TOTAL 0.4 mg/dL (0.2-1); BLOOD UREA NITROGEN 11 mg/dL (7-18); CALCIUM 8.2 mg/dL (8.5-10.1); CHLORIDE 103 mmol/L (98-107); CO2 31 mmol/L (21-32); CREATININE 0.6 mg/dL (0.55-1.3); GLUCOSE,RANDOM 104 mg/dL (74-106); POTASSIUM 4.7 mmol/L (3.5-5.1); SGOT/AST 190 U/L (15-37); SGPT/ALT 89 U/L (13-61); SODIUM 140 mmol/L (136-145); TOT PROT 7.4 g/dl (6.4-8.2)
[2018-08-10 11:45] LABS: HEMATOCRIT 37.6 % (32.4-45.2); HEMOGLOBIN 12.5 GM/dL (10.7-15.3); MCHC 33.3 g/dl (32.0-36.0); MEAN CELL VOLUME 102.3 fl (80-96); MEAN PLT VOLUME 10.2 fl (7.5-11.1); PLATELET COUNT 145 K/MM3 (134-434); RBC 3.68 M/mm3 (3.60-5.2); RDW 15.6 % (11.6-15.6)
--- NOTE | 2018-08-10 12:43 | PN ---
S Progress Note Note: pt c/o anxeity, states "what they are giving me is not touching it" Noted to be anxious, some tremors and with forehead slightly moist. A & O x 3 and ambulatory. Educated pt that she is experiencing withdrawals normal with detox and that we will help manage her symptoms. Low dose vistrail prn ordered, pt encouraged to increase hydration, practice calming exercises and make team aware if she experiences any cardiac symptoms. She verbalized understanding.. Ongoing monitoring of symptoms
[2018-08-10] MEDS: hydrOXYzine PAMOATE 25 MG CAPSULE (FP) PO PRN ×2 (13:53→23:06)
[2018-08-10] MEDS: ATORVASTATIN CA 20 MG TABLET (FP) PO SCH (23:07)
[2018-08-10] MEDS: THIAMINE HCL 100 MG TABLET (FP) PO SCH (23:07)
[2018-08-11] MEDS: chlordiazePOXIDE HCL 25 MG CAPSULE PO PRN ×2 (02:28→12:13)
[2018-08-11] MEDS ORDERED: METHADONE HCL 40 MG DISPERSABLE TABLET ONE (03:57)
[2018-08-11] MEDS ORDERED: METHADONE HCL 10 MG TABLET ONE (03:58)
[2018-08-11] MEDS: chlordiazePOXIDE HCL 25 MG CAPSULE PO SCH ×2 (05:12→10:41)
[2018-08-11] MEDS: METHADONE 40 MG, METHADONE 30 MG PO SCH (05:12)
[2018-08-11] MEDS: PHENYTOIN NA EXTENDED 100 MG CAPSULE (FP) PO SCH ×2 (05:13→14:57)
[2018-08-11] MEDS: hydrOXYzine PAMOATE 25 MG CAPSULE (FP) PO PRN ×2 (07:14→14:59)
[2018-08-11] MEDS: ASPIRIN 81 MG CHEWABLE TABLETS PO SCH (10:25)
[2018-08-11] MEDS: METOPROLOL TARTRATE 25 MG TABLET (FP) PO SCH (10:42)
[2018-08-11] MEDS: BUDESONIDE/FORMETEROL FUMARATE 80/4.5 mcg INHALER IH SCH (10:42)
[2018-08-11] MEDS: PRENATAL VITAMINS W/ FOLIC ACID TABLET (FP) PO SCH (10:42)
[2018-08-11] MEDS ORDERED: ASPIRIN 81 MG CHEWABLE TABLETS ONE (10:47)
[2018-08-11] MEDS: ASCORBIC ACID 500 MG TABLET (FP) PO SCH (10:50)
--- NOTE | 2018-08-11 14:12 | PN ---
[facility] CIWA - CIWA Score Nausea/Vomitin-Mild Nausea/No Vomiting Muscle Tremors: 2 Anxiety: 2 Agitation: 2 Paroxysmal Sweats: 2 Orientation: 0-Oriented Tacttile Disturbances: 0-None Auditory Disturbances: 0-None Visual Disturbances: 0-None Headache: 0-None Present CIWA-Ar Total Score: 9 S Progress Note (SOAP) Subjective: Anxious, sweating, chills, interrupted sleep (stated she has bad insomnia, chronic). Patient requesting to be discharged tomorrow and agreed to adjust librium protocol so that she can leave tomorrow. Objective: 08/11/18 14:09 Last Vital Signs Temp Pulse Resp BP Pulse Ox 98.4 F 89 18 106/77 08/11/18 13:08 08/11/18 13:08 08/11/18 13:08 08/11/18 13:08 Laboratory Tests 08/09/18 08/10/18 08/10/18 16:23 05:45 05:45 WBC 5.0 RBC 3.68 Hgb 12.5 Hct 37.6 MCV 102.3 H MCH 34.0 H MCHC 33.3 RDW 15.6 Plt Count 145 D MPV 10.2 Sodium 140 Potassium 4.7 Chloride 103 Carbon Dioxide 31 Anion Gap 6 L BUN 11 Creatinine 0.6 Creat Clearance w eGFR > 60 POC Glucometer 118 Random Glucose 104 Calcium 8.2 L Total Bilirubin 0.4 AST 190 H ALT 89 H Alkaline Phosphatase 218 H Total Protein 7.4 Albumin 3.6 Phenytoin RPR Titer 08/10/18 08/10/18 08/10/18 05:45 06:00 06:21 WBC RBC Hgb Hct MCV MCH MCHC RDW Plt Count MPV Sodium Potassium Chloride Carbon Dioxide Anion Gap BUN Creatinine Creat Clearance w eGFR POC Glucometer 105 Random Glucose Calcium Total Bilirubin AST ALT Alkaline Phosphatase Total Protein Albumin Phenytoin 12.1 RPR Titer Nonreactive 08/10/18 08/11/18 16:54 05:11 WBC RBC Hgb Hct MCV MCH MCHC RDW Plt Count MPV Sodium Potassium Chloride Carbon Dioxide Anion Gap BUN Creatinine Creat Clearance w eGFR POC Glucometer 127 98 Random Glucose Calcium Total Bilirubin AST ALT Alkaline Phosphatase Total Protein Albumin Phenytoin RPR Titer Labs reviewed Assessment: 08/11/18 14:10 Withdrawal symptoms Plan: Continue detox Encouraged PO water intake Patient scheduled for discharge tomorrow after morning medications Patient instructed to follow up with her PCP within 1-2 weeks after discharge
[2018-08-11] MEDS ORDERED: chlordiazePOXIDE 5 MG CAPSULE PO SCH (17:00)
[2018-08-11 18:03] VITALS: BP 110/85; PULSE 99; TEMP 98.1
--- NOTE | 2018-08-11 19:28 | PN ---
[facility] Progress [facility] Note: TC from OMAR Baxter that pt insisting on leaving the unit and does not want to wait for provider. Pt states she really does not want to stay and cannot get into the reason why she is leaving. Endorses feeling fine. Pt A & O x 3 and not in acute distress, stated she will do attend [facility] as an outpatient to help her cope. Also states she will follow up with her PMD Dr Aponte at [facility] also on [facility]. She stated she still has al of her meds and declined refills. Pt understands that she is going to leave Against medical advice.
--- NOTE | 2018-08-11 19:30 | DS ---
[facility] Detox Discharge Summary Admission Date: 08/09/18 Discharge Date: 08/11/18 - History Additional Comments: see progress note - Physical Exam Results Vital Signs: Vital Signs Temperature 98.1 F 08/11/18 18:03 Pulse Rate 99 H 08/11/18 18:03 Respiratory Rate 20 08/11/18 18:03 Blood Pressure 110/85 08/11/18 18:03 O2 Sat by Pulse Oximetry (%) - Medication Discharge Medications: Ambulatory Orders Aspirin [ASA -] 81 mg PO DAILY 04/02/14 Salmeterol/Fluticasone [Advair 250Mcg/50Mcg -] 1 inh IH BID 04/02/14 Ascorbic Acid [Vitamin C -] 500 mg PO DAILY 08/09/18 Atorvastatin Ca [Lipitor] 20 mg PO HS 08/09/18 Bupropion HCl [Bupropion Xl] 150 mg PO AM 08/09/18 Folic Acid - 1 mg PO DAILY 08/09/18 Metoprolol Tartrate [Lopressor -] 25 mg PO BID 08/09/18 Phenytoin Na Extended [Dilantin -] 100 mg PO Q8H 08/09/18 Sertraline HCl [Zoloft -] 100 mg PO AM 08/09/18 - AMA Did Patient Leave Against Medical Advice: Yes
[2018-08-12] MEDS ORDERED: chlordiazePOXIDE HCL 10 MG CAPSULE PO SCH ×2 (05:00→17:00)
== END 2018-08-11 17:15 | disposition left against medical advice (07) | DRG 770 ==
LOC: YASAS 11:52 → Y3N 15:34 → Y6N 20:00
PROVIDERS: ADMIT Surgery; ATTEND Surgery
PROC: HZ2ZZZZ Detoxification Services for Substance Abuse Treatment (ICD-10-PCS; principal; 2018-08-09)
DX: F10.230 Alcohol dependence with withdrawal, uncomplicated (principal); F11.20 Opioid dependence, uncomplicated; F17.210 Nicotine dependence, cigarettes, uncomplicated; F32.9 Major depressive disorder, single episode, unspecified; I25.10 Atherosclerotic heart disease of native coronary artery without angina pectoris; Z95.5 Presence of coronary angioplasty implant and graft; I25.2 Old myocardial infarction; E78.00 Pure hypercholesterolemia, unspecified; J45.30 Mild persistent asthma, uncomplicated; J44.9 Chronic obstructive pulmonary disease, unspecified; M54.5 Low back pain; B18.2 Chronic viral hepatitis C; Z91.5 Personal history of self-harm
CPT/HCPCS: 36415; 80053; 80185; 82962; 85027; 86593

== ENCOUNTER 2022-04-24 10:34 | Inpatient (IN) | payer OTHER ==
[2022-04-24 11:05] VITALS: BMI 25.7
[2022-04-24] MEDS ORDERED: MAGNESIUM CITRATE 300 ML BOTTLE PO PRN (13:21)
[2022-04-24] MEDS ORDERED: BISMUTH SUBSALICYLATE 262 MG/15 ML BTL PO PRN (13:21)
[2022-04-24] MEDS ORDERED: BENZOCAINE/MENTHOL (CHLORASEPTIC ) LOZENGE MM PRN (13:21)
[2022-04-24] MEDS ORDERED: IBUPROFEN 400 MG TABLET (FP) PO PRN (13:21)
[2022-04-24] MEDS ORDERED: DICYCLOMINE HCL 10 MG CAPSULE PO PRN (13:21)
[2022-04-24] MEDS ORDERED: LOPERAMIDE HCL 2 MG CAPSULE PO PRN (13:21)
[2022-04-24] MEDS ORDERED: MAG HYDROX/AL HYDROX/SIMETH 30 ML UNIT-DOSE CUP PO PRN (13:21)
[2022-04-24] MEDS ORDERED: ONDANSETRON *ODT* 4 MG TABLET SL PRN (13:21)
[2022-04-24] MEDS ORDERED: NALOXONE HCL (KLOXXADO) 8 MG SPRAY NS PRN (13:21)
[2022-04-24] MEDS ORDERED: METHOCARBAMOL 500 MG TABLET PO PRN (13:21)
[2022-04-24] MEDS ORDERED: IBUPROFEN 600 MG TABLET (FP) PO PRN (13:21)
[2022-04-24] MEDS ORDERED: NICOTINE 10 MG CARTRIDGE (INHALER) IH PRN (13:21)
[2022-04-24] MEDS ORDERED: ACETAMINOPHEN 325 MG TABLET (FP) PO PRN ×2 (13:21)
[2022-04-24] MEDS ORDERED: MAGNESIUM HYDROX 2400MG/30ML ORAL SUSPENSION 30 ML CUP PO PRN (13:21)
[2022-04-24] MEDS: hydrOXYzine PAMOATE 25 MG CAPSULE (FP) PO PRN ×2 (14:54→22:55)
[2022-04-24 15:17] LABS: CALCIUM 9.4 mg/dL (8.5-10.1)
[2022-04-24 15:18] LABS: ALBUMIN 3.8 g/dl (3.4-5.0); BLOOD UREA NITROGEN 6.5 mg/dL (7-18)
[2022-04-24 15:21] LABS: CREATININE 0.6 mg/dL (0.55-1.3)
[2022-04-24 15:23] LABS: BILIRUBIN,TOTAL 0.7 mg/dL (0.2-1); HEMATOCRIT 41.3 % (32.4-45.2); HEMOGLOBIN 14.1 GM/dL (10.7-15.3); MCH 32.7 pg (25.7-33.7); MCHC 34.2 g/dl (32.0-36.0); MEAN CELL VOLUME 95.8 fl (80-96); MEAN PLT VOLUME 8.5 fl (7.5-11.1); PLATELET COUNT 228 10^3/uL (134-434); RBC 4.31 M/mm3 (3.60-5.2); RDW 13.4 % (11.6-15.6); WHITE BLOOD COUNT 9.8 K/mm3 (4.0-10.0)
[2022-04-24] MEDS ORDERED: MELATONIN 5 MG TABLETS PO SCH (22:00)
[2022-04-24] MEDS ORDERED: THIAMINE HCL 100 MG TABLET (FP) PO SCH (22:00)
[2022-04-25 09:07] VITALS: RESP 18
[2022-04-25] MEDS ORDERED: PRENATAL VITAMINS W/ FOLIC ACID TABLET (FP) PO SCH (10:00)
[2022-04-25] MEDS ORDERED: methaDONE HCL 10 MG TABLET PO ONE (10:42)
[2022-04-25] MEDS ORDERED: methaDONE 40 MG, methaDONE 20 MG PO ONE (11:00)
[2022-04-25 13:11] VITALS: BP 108/66; PULSE 59; TEMP 97.3
[2022-04-26] MEDS ORDERED: methaDONE 40 MG, methaDONE 20 MG PO SCH (06:00)
[2022-04-26] MEDS ORDERED: methaDONE HCL 10 MG TABLET PO SCH (06:00)
== END 2022-04-25 14:40 | disposition home or self-care (01) | DRG 773 ==
LOC: YASAS 10:34 → Y6N 15:53
PROVIDERS: ADMIT Allergy & Immunology; ATTEND Surgery
PROC: HZ2ZZZZ Detoxification Services for Substance Abuse Treatment (ICD-10-PCS; principal; 2022-04-24)
DX: F10.230 Alcohol dependence with withdrawal, uncomplicated (principal); F11.20 Opioid dependence, uncomplicated; F14.20 Cocaine dependence, uncomplicated; F12.20 Cannabis dependence, uncomplicated; F17.210 Nicotine dependence, cigarettes, uncomplicated; J44.9 Chronic obstructive pulmonary disease, unspecified; I25.2 Old myocardial infarction; M51.26 Other intervertebral disc displacement, lumbar region; M54.50 Low back pain, unspecified; G89.29 Other chronic pain; Z86.19 Personal history of other infectious and parasitic diseases
CPT/HCPCS: 36415; 80053; 81025; 85027; 86780; 87811; C9803-CS; U0003; U0005